=== PATIENT | male | born 1985 | race African-American/Black ===

== ENCOUNTER 2019-10-28 14:38 | Emergency (ER) | payer MEDICAID ==
[~2019-10-28] VITALS: Ht 170.2 cm; Wt 81.0 kg
[2019-10-28 17:24] LABS: CLARITY URINE CLEAR (CLEAR); COLOR URINE YELLOW (YELLOW); KETONES URINE TRACE (NEGATIVE); LEUKOCYTE ESTERASE URINE NEGATIVE (NEGATIVE); NITRITE URINE NEGATIVE (NEGATIVE); OCCULT BLOOD URINE NEGATIVE (NEGATIVE); PROTEIN URINE 2+ (NEGATIVE); SPECIFIC GRAVITY URINE 1.052 (1.005-1.030); UROBILINOGEN URINE 0.2 E.U./dL (0.2-1.0)
[2019-10-28 18:55] VITALS: BP 133/95
[2019-10-28] MEDS ORDERED: IBUPROFEN 600MG TABLET PO ONE (19:00)
== END 2019-10-28 19:24 | disposition home or self-care (01) ==
LOC: ER 14:38
DX: N48.1 Balanitis (principal); E11.9 Type 2 diabetes mellitus without complications
CPT/HCPCS: 81003; 99283

== ENCOUNTER 2020-11-05 13:52 | Emergency (ER) | payer MEDICAID ==
[~2020-11-05] VITALS: Ht 170.2 cm; Wt 77.0 kg
[2020-11-05] MEDS ORDERED: MORPHINE SULFATE 4 MG/ML CPJ (NOT FOR IM USE) IV ONE (15:30)
[2020-11-05 18:56] VITALS: BP 133/81
== END 2020-11-05 18:59 | disposition home or self-care (01) ==
LOC: ER 13:52
DX: R59.0 Localized enlarged lymph nodes (principal); E11.9 Type 2 diabetes mellitus without complications; Z98.890 Other specified postprocedural states
CPT/HCPCS: 76857; 96374; 99284; J2270; Z7610

== ENCOUNTER 2021-08-30 18:20 | Emergency (ER) | payer MEDICAID ==
[~2021-08-30] VITALS: Ht 172.7 cm; Wt 85.0 kg
[2021-08-30] MEDS ORDERED: LIDOCAINE 5% PATCH TOP SCH (22:00)
[2021-08-30] MEDS ORDERED: CYCLOBENZAPRINE 10MG TABLET PO ONE (22:00)
[2021-08-30] MEDS ORDERED: KETOROLAC 60MG/2ML VIAL IM ONE (22:00)
[2021-08-30] MEDS ORDERED: CYCL5TAB MT (22:51)
[2021-08-30] MEDS ORDERED: ACET-2708 MT (22:51)
[2021-08-30 22:55] VITALS: BP 147/90
== END 2021-08-30 23:05 | disposition home or self-care (01) ==
LOC: ER 18:20
DX: M62.830 Muscle spasm of back (principal); E11.9 Type 2 diabetes mellitus without complications; Z98.890 Other specified postprocedural states
CPT/HCPCS: 96372; 99283; J1885

== ENCOUNTER 2022-09-01 14:27 | Emergency (ER) | payer MEDICAID ==
[~2022-09-01] VITALS: Ht 172.7 cm; Wt 81.0 kg
[~2022-09-01 14:27] MED LIST: ACET-2708 MT; CYCL5TAB MT
[2022-09-01] MEDS ORDERED: LIDO15CR6 TP (19:33)
[2022-09-01 19:56] VITALS: BP 129/95
== END 2022-09-01 20:01 | disposition home or self-care (01) ==
LOC: ER 14:51
DX: K60.2 Anal fissure, unspecified (principal); E11.9 Type 2 diabetes mellitus without complications; I49.9 Cardiac arrhythmia, unspecified
CPT/HCPCS: 99282